=== PATIENT | female | born 1945 | race Native Hawaiian/Other Pacific Islander ===

== ENCOUNTER 2018-03-17 10:58 | Emergency (ER) | payer MEDICARE, BC ==
--- NOTE | 2018-03-17 11:41 | C.PDOC ---
History Of Present Illness 73 y/o female with history of DM, Minor Thalassemia presents to ED s/p mechanical fall while cleaning stairs of basement [employer]. Patient states, " was cleaning stairs and lost balance, fell backwards and hit the back of head on floor". Patient c/o headache, neck pain, right hand pain, right upper back pain, RIght hip pain. Otherwise, pt denies LOC ( able to recall entire accident),. denies severe headache, dizziness, visual changes, focal deficits, CP, SOB, dyspnea, palpitation, abd. pain, N/V, saddle anesthesia, incontinence, denies deformity, weakness to B/L UEs and LEs. Ambulatory in ED with stable gait, not in any apparent distress. - HPI Time Seen by Provider: 03/17/18 11:17 Chief Complaint (Nursing): Trauma History Per: Patient History/Exam Limitations: no limitations Onset/Duration Of Symptoms: Hrs Past Medical History Reviewed: Historical Data, Nursing Documentation, Vital Signs Vital Signs: Last Vital Signs Temp 97.9 F 03/17/18 11:06 Pulse 63 03/17/18 11:06 Resp 18 03/17/18 11:06 BP 178/77 H 03/17/18 11:06 Pulse Ox 100 03/17/18 11:06 - Medical History PMH: Arthritis, HTN, Hypercholesterolemia Surgical History: Cholecystectomy Family History: States: No Known Family Hx - Social History Hx Alcohol Use: No Hx Substance Use: No - Immunization History Hx Tetanus Toxoid Vaccination: No Hx Influenza Vaccination: No Hx Pneumococcal Vaccination: No Review Of Systems Eyes: Negative for: Vision Change Gastrointestinal: Negative for: Nausea, Vomiting Musculoskeletal: Positive for: Neck Pain, Shoulder Pain, Back Pain, Hand Pain Skin: Negative for: Rash, Bruising Neurological: Positive for: Headache. Negative for: Weakness, Numbness, Dizziness Physical Exam - Physical Exam Appears: Well, Non-toxic, No Acute Distress Skin: Warm, Dry, No Rash, No Ecchymosis Head: Normacephalic, No Tenderness, Other (Contusion to occipital area) Eye(s): bilateral: PERRL, EOMI Ear(s): Bilateral: Normal Nose: No Flaring, No Deformity, No Tenderness Oral Mucosa: Moist, No Drooling Tongue: Normal Appearing Lips: Normal Appearing Neck: Normal ROM, Trachea Midline, No Midline Cervical Tenderness, No Step Off Deformity, Supple, Other (mild B/L lateran neck tenderness extned to upper back with mild muscle spasm. NO palpable deformity, no midline tenderness, no ecchymoses.) Chest: Symmetrical, No Deformity, No Tenderness Cardiovascular: Rhythm Regular, No Murmur, No JVD, Other ((-) carotid bruits B/L) Respiratory: No Decreased Breath Sounds, No Accessory Muscle Use, No Rales, No Rhonchi, No Wheezing Gastrointestinal/Abdominal: Soft, No Tenderness, No Distention, No Guarding, No Rebound Back: No Vertebral Tenderness, No Paraspinal Tenderness Extremity: Normal ROM (B/L UEs and LEs), Tenderness (over right hip area, no palpable deformity, no extr shortening.), No Pedal Edema, Capillary Refill (<2 seconds), No Deformity, No Swelling Extremity: Bilateral: Atraumatic, Normal ROM Neurological/Psych: Oriented x3, Normal Speech, Normal Cognition, Normal Motor, Normal Sensation, Normal Reflexes Gait: Steady ED Course And Treatment - Laboratory Results Result Diagrams: 03/17/18 13:09 03/17/18 13:09 Lab Interpretation: No Acute Changes ECG: Interpreted By Me, Viewed By Me O2 Sat by Pulse Oximetry: 100 (RA) Pulse Ox Interpretation: Normal - Other Rad CXR X-Ray: Read By Radiologist Interpretation: Creator : Mireya Burgess V. Dictator : Mireya Burgess V. Bolting Machine Operator : Diamond Expert : Mireya Burgess V. Approver2 : Report Date : 03/17/2018 12:36:40. My Comment : . Date of service: 03/17/2018. HISTORY: Cough. COMPARISON: No prior. TECHNIQUE: Chest PA and lateral. FINDINGS: LUNGS: Hyperdensity projects over the anterior inferior right 1st rib and right upper lobe. Asymmetrical coaster cartilaginous junctional calcification can simulate this. This is likely at the most likely etiology. However as an underlying right upper lobe pulmonary mass cannot be excluded without comparison studies suggesting stability of it, consider apical lordotic views and/or outside chest x-rays 2 years or older to ensure stable pattern. No pulmonary infiltrate suggested. Tiny bone island and/or right upper lobe pulmonary nodule probable granuloma also incidentally noted 2 x 3 mm in size. PLEURA: No significant pleural effusion identified. No pneumothorax apparent. CARDIOVASCULAR: There is presence of aortic atherosclerotic calcification on x-ray. Minimal cardiomegaly. Pulmonary vasculature probably top-normal. OSSEOUS STRUCTURES: Thoracic spondylosis. Bilateral shoulder arthrosis. Probably asymmetrical coaster cartilaginous junctional calcification of anterior right 1st rib. VISUALIZED UPPER ABDOMEN: Right upper quadrant cholecystectomy clips. OTHER FINDINGS: None. IMPRESSION: Probably asymmetrically prominent coaster cartilaginous junctional calcifications right 1st rib. Recommend comparison with prior outside studies if available 2 years or older to ensure stability. In addition a small sub cm probable granuloma and/or bone island of the anterior right 2nd rib is noted. Both findings can be assessed for chronicity and stability when prior outside studies become available. If no such studies become available then consider slight apical lordotic follow-up chest [id number] the more sensitive exam would be a noncontrast CT chest study. No pulmonary infiltrate. Other findings as above. Pelvis with Right hip X-Ray: Interpreted by Me, Viewed By Me Interpretation: Creator : Mireya Burgess V. Dictator : Mireya Burgess V. Bolting Machine Operator : Diamond Expert : Mireya Burgess V. Approver2 : Report Date : 03/17/2018 12:27:32. My Comment : . Date of service: 03/17/2018. PROCEDURE: HISTORY: injury. COMPARISON: None. TECHNIQUE: AP pelvis and frog's leg view. FINDINGS: Bilateral hip joint space narrowing with bilateral diffuse acetabular spurring. No fracture or lytic lesion. Bilateral greater trochanteric osseous productive changes. Bilateral atherosclerotic vascular calcifications over each groin. Moderate stool content cecum. Sacroiliac and pubic symphyseal joints grossly unremarkable. IMPRESSION: No fracture or dislocation. Bilateral hip arthrosis. Other findings as above. L-spine X-Ray: Interpreted by Me, Read By Radiologist Interpretation: Diamond Expert : Mireya Burgess V. Approver2 : Report Date : 03/17/2018 12:25:44. My Comment : . Date of service: 03/17/2018. PROCEDURE: Radiographs of the Lumbar Spine. HISTORY: injury. COMPARISON: No prior. FINDINGS: BONES: Normal alignment. No listhesis. No fracture. Diffuse thoraco lumbar spondylosis. DISC SPACES: Unremarkable. OTHER FINDINGS: Mild facet hypertrophic arthrosis L4-5 and L5-S1. Lateral hip arthrosis. Right upper quadrant cholecystectomy clips. Descending abdominal aortic atherosclerotic vascular calcification-and splenic artery atherosclerotic vascular calcification. No gross aneurysm dimension suggested of either. Stool retention. No bowel obstruction appreciated. IMPRESSION: No fracture or lytic lesion. Thoraco lumbar spondylosis and facet arthrosis. Atherosclerotic vascular disease. Other findings as above. - CT Scan/US CT head Other Rad Studies (CT/US): Radiology Report Reviewed CT/US Interpretation: Dictator : Jesse Cardona MD. Bolting Machine Operator : Diamond Expert : Jesse Cardona MD. Approver2 : Report Date : 03/17/2018 12:34:37. My Comment : . Date of service: 03/17/2018. PROCEDURE: CT HEAD WITHOUT CONTRAST. HISTORY: injury. COMPARISON: None available. TECHNIQUE: Axial computed tomography images were obtained through the head/brain without intravenous contrast. Radiation dose: Total exam DLP = 915.58 mGy-cm. This CT exam was performed using one or more of the following dose reduction techniques: Automated exposure control, adjustment of the mA and/or kV according to patient size, and/or use of iterative reconstruction technique. FINDINGS: HEMORRHAGE: No intracranial hemorrhage. BRAIN: No mass effect or edema. Minimal age-appropriate atrophy. Minimal chronic periventricular white matter lucency consistent with microvascular ischemic change. VENTRICLES: Unremarkable. No hydrocephalus. CALVARIUM: No fracture. Midline parietal vertex scalp hematoma. PARANASAL SINUSES: Unremarkable as visualized. No significant inflammatory changes. MASTOID AIR CELLS: Unremarkable as visualized. No inflammatory changes. OTHER FINDINGS: None. IMPRESSION: No intracranial hemorrhage. Small scalp hematoma as described. Otherwise unremarkable. C-spine Other Rad Studies (CT/US): Radiology Report Reviewed CT/US Interpretation: Dictator : Jesse Cardona MD. Bolting Machine Operator : Diamond Expert : Jesse Cardona MD. Approver2 : Report Date : 03/17/2018 12:34:43. My Comment : . Date of service: 03/17/2018. PROCEDURE: CT Cervical Spine without contrast. HISTORY: injury. COMPARISON: None available. TECHNIQUE: Axial computed tomography images were obtained of the cervical spine without the use of intravenous contrast. Coronal and sagittal reformatted images were created and reviewed. Radiation dose: Total exam DLP = 278.72 mGy-cm. This CT exam was performed using one or more of the following dose reduction techniques: Automated exposure control, adjustment of the mA and/or kV according to patient size, and/or use of iterative reconstruction technique. FINDINGS: VERTEBRAE: No fracture. Normal alignment. No destructive bony lesion. DISCS/SPINAL CANAL/NEURAL FORAMINA: Narrowing of the C5-6 intervertebral disc space consistent with degenerative disc disease. Osteophytes are seen in association with this narrowed disc space. The remaining intervertebral disc spaces are maintained in height. PARASPINAL SOFT TISSUES: Unremarkable. OTHER FINDINGS: Incidental note is made of calcification/ossification of the nuchal ligament. IMPRESSION: No evidence of fracture or dislocation. Degenerative disc disease noted at C5-6. Calcification of the nuchal ligament incidentally noted. No additional abnormality. Right thumb Other Rad Studies (CT/US): Radiology Report Reviewed CT/US Interpretation: IMPRESSION: No acute fracture. Osteoarthritis of interphalangeal joints as detailed above. Progress Note: On re-eval, pt is afebrile, hemodynamicaly stable. Non-toxic. Ambulatory in Ed with stable gait. Tolerate Po well in ED. PulseOx 100% RA. head: mkild contusion to occipital scalp noted, no palpable deformity. neck: Supple, (-) midline tenderness, (-) JVD, (-) carotid bruits B/L. Lungs: CTA B/L, BS equal B/L. CVS: (+)S1S2, reg, (-) murmur. Abd: benign. Neurologicaly intact. All imagings review (-) acute findings relaited to injury. Pt has clinical findings c/w head injury, cervical strain, Right hip and RIght thumb contusion. Pt advised OBS 48 hrs for any sign of hea dinjury-return to ED if any new changes. ref. to f/u with PMD, Ortho in 1-2 days for re-eavl. return if any new changes. Disposition Counseled Patient/Family Regarding: Studies Performed, Diagnosis, Need For Followup - Disposition Referrals: Bear Rodriguez MD [Staff Provider] - Disposition: HOME/ ROUTINE Disposition Time: 13:44 Condition: STABLE Additional Instructions: Observe 48 hours for any sign of head injury-intractable headache, vomiting, letahrgy, visual changes, or nay other new changes-return to ED immediately for re-evaluation,. Finger splint for 1 week Tylenol as need for pain Follow up with PMD in 2-3 days for re-evaluation. return to Ed if any worsening or new changes. Instructions: Closed Head Injury (DC), Cervical Muscle Strain, Finger Sprain (DC), Hip Pain Forms: [employer] (H[place] Konger) - Clinical Impression Clinical Impression: Head injury, Cervical strain, Finger contusion, Contusion, hip - PA / DEPARTMENT CLERK / Resident Statement MD/DO has reviewed & agrees with the documentation as recorded. - Scribe Statement The provider has reviewed the documentation as recorded by the Joonibdayanna Velasco All medical record entries made by the Edgar were at my direction and personally dictated by me. I have reviewed the chart and agree that the record accurately reflects my personal performance of the history, physical exam, medical decision making, and the department course for this patient. I have also personally directed, reviewed, and agree with the discharge instructions and disposition.
[2018-03-17] MEDS ORDERED: Sodium Chloride 0.9% 1,000 ML IV ONE (11:58)
[2018-03-17] MEDS ORDERED: Sodium Chloride 0.9% 1,000 ML ONE (12:07)
[2018-03-17 12:19] LABS: SQUAMOUS EPITHIAL < 1 /hpf (0-5); URINE BILIRUBIN NEGATIVE (NEGATIVE); URINE BLOOD NEGATIVE (NEGATIVE); URINE CLARITY Clear (Clear); URINE COLOR Straw (YELLOW); URINE GLUCOSE (UA) NORMAL (Normal); URINE LEUKOCYTE ESTERASE NEG Leu/uL (Negative); URINE PROTEIN 1+ mg/dL (NEGATIVE); URINE UROBILINOGEN NORMAL mg/dL (0.2-1.0)
--- NOTE | 2018-03-17 12:29 | RAD ---
Date of service: 03/17/2018 PROCEDURE: Radiographs of the Lumbar Spine. HISTORY: injury COMPARISON: No prior. FINDINGS: BONES: Normal alignment. No listhesis. No fracture. Diffuse thoraco lumbar spondylosis. DISC SPACES: Unremarkable. OTHER FINDINGS: Mild facet hypertrophic arthrosis L4-5 and L5-S1 Lateral hip arthrosis Right upper quadrant cholecystectomy clips. Descending abdominal aortic atherosclerotic vascular calcification-and splenic artery atherosclerotic vascular calcification. No gross aneurysm dimension suggested of either. Stool retention. No bowel obstruction appreciated. IMPRESSION: No fracture or lytic lesion. Thoraco lumbar spondylosis and facet arthrosis Atherosclerotic vascular disease Other findings as above.
--- NOTE | 2018-03-17 12:31 | RAD ---
Date of service: 03/17/2018 PROCEDURE: HISTORY: injury COMPARISON: None TECHNIQUE: AP pelvis and frog's leg view. FINDINGS: Bilateral hip joint space narrowing with bilateral diffuse acetabular spurring. No fracture or lytic lesion. Bilateral greater trochanteric osseous productive changes. Bilateral atherosclerotic vascular calcifications over each groin. Moderate stool content cecum Sacroiliac and pubic symphyseal joints grossly unremarkable IMPRESSION: No fracture or dislocation. Bilateral hip arthrosis Other findings as above.
--- NOTE | 2018-03-17 12:40 | RAD ---
Date of service: 03/17/2018 HISTORY: Cough COMPARISON: No prior. TECHNIQUE: Chest PA and lateral FINDINGS: LUNGS: Hyperdensity projects over the anterior inferior right 1st rib and right upper lobe. Asymmetrical coaster cartilaginous junctional calcification can simulate this. This is likely at the most likely etiology. However as an underlying right upper lobe pulmonary mass cannot be excluded without comparison studies suggesting stability of it, consider apical lordotic views and/or outside chest x-rays 2 years or older to ensure stable pattern. No pulmonary infiltrate suggested. Tiny bone island and/or right upper lobe pulmonary nodule probable granuloma also incidentally noted 2 x 3 mm in size. PLEURA: No significant pleural effusion identified. No pneumothorax apparent. CARDIOVASCULAR: There is presence of aortic atherosclerotic calcification on x-ray. Minimal cardiomegaly. Pulmonary vasculature probably top-normal. OSSEOUS STRUCTURES: Thoracic spondylosis. Bilateral shoulder arthrosis. Probably asymmetrical coaster cartilaginous junctional calcification of anterior right 1st rib. VISUALIZED UPPER ABDOMEN: Right upper quadrant cholecystectomy clips OTHER FINDINGS: None. IMPRESSION: Probably asymmetrically prominent coaster cartilaginous junctional calcifications right 1st rib. Recommend comparison with prior outside studies if available 2 years or older to ensure stability. In addition a small sub cm probable granuloma and/or bone island of the anterior right 2nd rib is noted. Both findings can be assessed for chronicity and stability when prior outside studies become available. If no such studies become available then consider slight apical lordotic follow-up chest [id number] the more sensitive exam would be a noncontrast CT chest study. No pulmonary infiltrate. Other findings as above. Comments: Study marked for PA review .
--- NOTE | 2018-03-17 12:50 | CT ---
Date of service: 03/17/2018 PROCEDURE: CT HEAD WITHOUT CONTRAST. HISTORY: injury COMPARISON: None available. TECHNIQUE: Axial computed tomography images were obtained through the head/brain without intravenous contrast. Radiation dose: Total exam DLP = 915.58 mGy-cm. This CT exam was performed using one or more of the following dose reduction techniques: Automated exposure control, adjustment of the mA and/or kV according to patient size, and/or use of iterative reconstruction technique. FINDINGS: HEMORRHAGE: No intracranial hemorrhage. BRAIN: No mass effect or edema. Minimal age-appropriate atrophy. Minimal chronic periventricular white matter lucency consistent with microvascular ischemic change. VENTRICLES: Unremarkable. No hydrocephalus. CALVARIUM: No fracture. Midline parietal vertex scalp hematoma. PARANASAL SINUSES: Unremarkable as visualized. No significant inflammatory changes. MASTOID AIR CELLS: Unremarkable as visualized. No inflammatory changes. OTHER FINDINGS: None. IMPRESSION: No intracranial hemorrhage. Small scalp hematoma as described. Otherwise unremarkable.
--- NOTE | 2018-03-17 12:56 | CT ---
Date of service: 03/17/2018 PROCEDURE: CT Cervical Spine without contrast HISTORY: injury COMPARISON: None available. TECHNIQUE: Axial computed tomography images were obtained of the cervical spine without the use of intravenous contrast. Coronal and sagittal reformatted images were created and reviewed. Radiation dose: Total exam DLP = 278.72 mGy-cm. This CT exam was performed using one or more of the following dose reduction techniques: Automated exposure control, adjustment of the mA and/or kV according to patient size, and/or use of iterative reconstruction technique. FINDINGS: VERTEBRAE: No fracture. Normal alignment. No destructive bony lesion. DISCS/SPINAL CANAL/NEURAL FORAMINA: Narrowing of the C5-6 intervertebral disc space consistent with degenerative disc disease. Osteophytes are seen in association with this narrowed disc space. The remaining intervertebral disc spaces are maintained in height. PARASPINAL SOFT TISSUES: Unremarkable. OTHER FINDINGS: Incidental note is made of calcification/ossification of the nuchal ligament. IMPRESSION: No evidence of fracture or dislocation. Degenerative disc disease noted at C5-6. Calcification of the nuchal ligament incidentally noted. No additional abnormality.
[2018-03-17 13:12] LABS: BASO # 0.1 K/uL (0.0-0.2); BASO % 0.8 % (0.0-2.0); EOS # 0.2 K/uL (0.0-0.7); EOS % 1.9 % (0.0-4.0); HEMOGLOBIN 12.1 g/dL (11.0-16.0); LYMPH # 1.3 K/uL (1.0-4.3); LYMPH % 11.4 % (20.0-40.0); MEAN CELL VOLUME 57.9 fL (81.0-99.0); MEAN CORPUSCULAR HEMOGLOBIN 17.8 pg (27.0-31.0); MEAN CORPUSCULAR HGB CONC 30.8 g/dL (33.0-37.0); MEAN PLATELET VOLUME 9.4 fL (7.2-11.7); MONO # 0.9 K/uL (0.0-0.8); MONO % 7.5 % (0.0-10.0); NEUT # 9.1 K/uL (1.8-7.0); NEUT % 78.4 % (50.0-75.0); RBC 6.76 Mil/uL (3.80-5.20); RED CELL DISTRIBUTION WIDTH 15.3 % (11.5-14.5); WHITE BLOOD COUNT 11.6 K/uL (4.8-10.8)
[2018-03-17 13:21] LABS: PROTHROMBIN TIME 10.9 SECONDS (9.7-12.2)
[2018-03-17 13:29] LABS: ALB/GLOB RATIO 1.4 (1.0-2.1); ALBUMIN 5.2 g/dL (3.5-5.0); ALT/SGPT 22 U/L (9-52); AST/SGOT 26 U/L (14-36); BLOOD UREA NITROGEN 19 mg/dL (7-17); CALCIUM 10.2 mg/dl (8.6-10.4); GFR NON-AFRICAN AMERICAN > 60
--- NOTE | 2018-03-17 15:10 | RAD ---
Date of service: 03/17/2018 PROCEDURE: Right Thumb radiographs. HISTORY: pain swelling s/p fall COMPARISON: None. TECHNIQUE: AP radiograph of the right hand, as well as spot oblique and lateral images of thumb were obtained. FINDINGS: RIGHT THUMB: No acute fracture. Osteoarthritis of IP 1. Osteoarthritis of DIP 2 through 5. The remaining joint spaces and articular surfaces are preserved. JOINTS: As above SOFT TISSUES: Normal. OTHER FINDINGS: None. IMPRESSION: No acute fracture. Osteoarthritis of interphalangeal joints as detailed above.
[2018-03-17 15:57] VITALS: BP 136/56; PULSE 63; RESP 18; TEMP 98.1
[2018-03-17 16:40] VITALS: O2SAT 100
== END 2018-03-17 16:21 | disposition home or self-care (01) ==
LOC: C.ER 10:58
DX: S00.03XA Contusion of scalp, initial encounter (principal); S16.1XXA Strain of muscle, fascia and tendon at neck level, initial encounter; S60.011A Contusion of right thumb without damage to nail, initial encounter; S70.01XA Contusion of right hip, initial encounter; W10.9XXA Fall (on) (from) unspecified stairs and steps, initial encounter; Y93.E9 Activity, other interior property and clothing maintenance
CPT/HCPCS: 29130; 70450; 71046; 72100; 72125; 73140; 73502; 80053; 81001; 82550; 82948; 84484; 85025; 85610; 85730; 96360; 99285; J7030